=== PATIENT | female | born 1965 | race Caucasian/White ===

== ENCOUNTER 2019-08-21 20:10 | Inpatient (IN) | payer OTHER ==
[~2019-08-21] VITALS: Ht 172.7 cm; Wt 59.5 kg
[2019-08-21 21:00] LABS: BASOPHILS # (AUTO) 0.01 x10^3/uL (0-0.1); BASOPHILS % (AUTO) 0 % (0-1); EOSINOPHILS % (AUTO) 0 % (1-7); LYMPHOCYTES # (AUTO) 1.13 x10^3/uL (1-3.4); LYMPHOCYTES % (AUTO) 8 % (22-44); MD NO; MEAN CORPUSCULAR HGB CONC 33.7 g/dL (32.4-35.8); MEAN CORPUSCULAR VOLUME 97.7 fL (80-100); MONOCYTES # (AUTO) 0.45 x10^3/uL (0.2-0.8); MONOCYTES % (AUTO) 3 % (2-9); NEUTROPHILS % (AUTO) 89 % (42-75); PLATELET COUNT 202 x10^3/uL (130-400); RED BLOOD COUNT 4.83 x10^6/uL (3.82-5.3); RED CELL DISTRIBUTION WIDTH 13.8 % (9.6-15.2)
--- NOTE | 2019-08-21 21:01 | NUR ---
BIB [place], PER EMS, PT WAS WANDERING AROUND THE STREETS ATTEMPTING TO ACCESS RANDOM HOUSES. PT CONFUSED. PT ANSWERS "YES" TO MOST QUESTIONS. PT A+OX2 (PERSON AND PLACE) NO ACUTE DISTRESS. NO MEDICAL COMPLAINTS
--- NOTE | 2019-08-21 21:01 | NUR ---
PT RETURNED FROM CT AT THIS TIME
[2019-08-21 21:11] LABS: ALANINE AMINOTRANSFERASE 36 U/L (12-78); ALBUMIN 3.8 g/dL (3.4-5.0); ANION GAP 16 mmol/L (5-15); CALCIUM 8.1 mg/dL (8.5-10.1); CHLORIDE 105 mmol/L (98-107); CREATININE 0.82 mg/dL (0.55-1.02)
--- NOTE | 2019-08-21 21:12 | NUR ---
PT AMBULATORY TO BEDSIDE CAMMODE FOR URINE SAMPLE WITH STEADY GAIT
[2019-08-21 21:15] LABS: ALKALINE PHOSPHATASE 90 U/L (45-117); BILIRUBIN,TOTAL 0.4 mg/dL (0.2-1.0); TOTAL PROTEIN 7.2 g/dL (6.4-8.2)
[2019-08-21 21:36] LABS: AMPHETAMINE SCREEN, URINE Negative (Negative); BARBITURATE SCREEN, URINE Negative (Negative); BENZODIAZEPINE SCREEN, URINE Negative (Negative); CANNABINOID SCREEN, URINE Negative (Negative); COCAINE SCREEN, URINE Negative (Negative); METHADONE SCREEN, URINE Negative (Negative); OPIATE SCREEN, URINE Negative (Negative)
[2019-08-21 21:41] LABS: MICROSCOPIC INDICATED
[2019-08-21 22:10] LABS: CULTURE INDICATED? YES
[2019-08-21] MEDS ORDERED: LORazepam 1MG TABLET ONE (22:48)
[2019-08-21] MEDS ORDERED: LORazepam 2 MG/ML, 1ML ONE (22:49)
[2019-08-21] MEDS ORDERED: LORazepam 1MG TABLET PO ONE (23:00)
[2019-08-21] MEDS ORDERED: MAGNESIUM SULFATE 1 GM, THIAMINE 100 MG, FOLIC ACID 1 MG, MVI ADULT 10 ML in SODIUM CHL... IV ONE (23:00)
[2019-08-21] MEDS ORDERED: CEFTRIAXONE PMX 1GM/50ML 50 ML IV ONE (23:00)
[2019-08-21] MEDS ORDERED: LORazepam 2 MG/ML, 1ML IVPush PRN (23:00)
[2019-08-21] MEDS ORDERED: SODIUM CHLORIDE FLUSH 10ML SYR IVF ONE (23:00)
[2019-08-21] MEDS ORDERED: SODIUM CHLORIDE 0.9% 1,000ML IVBOLUS ONE (23:00)
[2019-08-21] MEDS ORDERED: SODIUM CHLORIDE 0.9% 1,000 ML IV SCH (23:22)
[2019-08-21] MEDS ORDERED: BISACODYL 10 MG SUPP PR PRN (23:30)
[2019-08-21] MEDS ORDERED: POLYETHYLENE GLYCOL 17 GM PACKET PO PRN (23:30)
[2019-08-21] MEDS ORDERED: ONDANSETRON ODT 4 MG PO PRN (23:30)
--- NOTE | 2019-08-21 23:31 | NUR ---
PER YESICA IN PHARMACY BANANA BAG AND JASMYN COMPATIBLE IN IV
--- NOTE | 2019-08-21 23:32 | NUR ---
PER EMILIO ANGEL HANY, NO BLOOD CULTURES BEFORE ABX
[2019-08-21] MEDS ORDERED: CEFTRIAXONE PMX 1GM/50ML 50 ML ONE (23:33)
--- NOTE | 2019-08-21 23:45 | NUR ---
REPORT GIVEN TO REINALDO RYDER
[2019-08-22 00:07] VITALS: BP 125/90
[2019-08-22 00:22] VITALS: BP 142/91
[2019-08-22] MEDS ORDERED: HYDR1TAB13 PO (01:20)
[2019-08-22] MEDS ORDERED: CITA40TA12 PO (01:20)
[2019-08-22] MEDS ORDERED: TRAZ50TA66 PO (01:20)
[2019-08-22] MEDS ORDERED: Antibiotic (01:20)
[2019-08-22] MEDS: THIAMINE 100MG TABLET PO SCH ×3 (02:01→20:31)
[2019-08-22 03:16] LABS: BASOPHILS # (AUTO) 0.07 x10^3/uL (0-0.1); BASOPHILS % (AUTO) 1 % (0-1); EOSINOPHILS % (AUTO) 0 % (1-7); LYMPHOCYTES # (AUTO) 2.86 x10^3/uL (1-3.4); LYMPHOCYTES % (AUTO) 25 % (22-44); MD NO; MEAN CORPUSCULAR VOLUME 99.7 fL (80-100); MEAN PLATELET VOLUME 8.2 fL (7.4-10.4); MONOCYTES # (AUTO) 0.88 x10^3/uL (0.2-0.8); MONOCYTES % (AUTO) 8 % (2-9); NEUTROPHILS # (AUTO) 7.44 x10^3/uL (1.8-6.8); NEUTROPHILS % (AUTO) 66 % (42-75); PLATELET COUNT 199 x10^3/uL (130-400); RED CELL DISTRIBUTION WIDTH 13.9 % (9.6-15.2)
[2019-08-22 03:28] LABS: ALBUMIN 3.5 g/dL (3.4-5.0); ANION GAP 10 mmol/L (5-15); CALCIUM 7.5 mg/dL (8.5-10.1); CHLORIDE 107 mmol/L (98-107)
[2019-08-22 03:31] LABS: ALANINE AMINOTRANSFERASE 35 U/L (12-78); ALKALINE PHOSPHATASE 78 U/L (45-117); BILIRUBIN,TOTAL 0.4 mg/dL (0.2-1.0); CREATININE 0.58 mg/dL (0.55-1.02); TOTAL PROTEIN 6.3 g/dL (6.4-8.2)
[2019-08-22 06:27] VITALS: BP 139/93
[2019-08-22] MEDS: LORazepam 2 MG/ML, 1ML IVPush PRN ×3 (06:30→20:31)
[2019-08-22 07:17] VITALS: BP 124/84
[2019-08-22] MEDS: SENNA/DOCUSATE TABLET PO SCH (09:00)
[2019-08-22] MEDS ORDERED: ACETAMINOPHEN 325 MG TABLET PO PRN (09:00)
[2019-08-22] MEDS: NICOTINE 21 MG/24 HR PATCH.TD24 TD SCH (09:00)
[2019-08-22] MEDS: FOLIC ACID 1 MG TABLET PO SCH (09:00)
[2019-08-22] MEDS: MULTIVITAMINS/MINERALS TABLET PO SCH (09:00)
[2019-08-22] MEDS: ENOXAPARIN 40 MG/0.4 ML SQ SCH (09:00)
[2019-08-22] MEDS: SODIUM CHLORIDE 0.9% 1,000 ML IV SCH ×2 (09:05→23:40)
[2019-08-22] MEDS: CHLORDIAZEPOXIDE 25 MG CAPSULE PO PRN ×2 (09:17→15:10)
[2019-08-22 12:37] VITALS: BP 146/95
[2019-08-22 19:46] VITALS: BP 150/90
[2019-08-22] MEDS ORDERED: CEFTRIAXONE PMX 1GM/50ML 50 ML IV SCH (23:00)
[2019-08-23 00:53] VITALS: BP 140/90
[2019-08-23 06:46] LABS: BASOPHILS # (AUTO) 0.06 x10^3/uL (0-0.1); BASOPHILS % (AUTO) 1 % (0-1); EOSINOPHILS # (AUTO) 0.11 x10^3/uL (0-0.4); EOSINOPHILS % (AUTO) 2 % (1-7); LYMPHOCYTES # (AUTO) 1.42 x10^3/uL (1-3.4); LYMPHOCYTES % (AUTO) 24 % (22-44); MD NO; MEAN CORPUSCULAR HEMOGLOBIN 33.9 pg (27.0-34.8); MEAN CORPUSCULAR VOLUME 99.6 fL (80-100); MEAN PLATELET VOLUME 8.3 fL (7.4-10.4); MONOCYTES # (AUTO) 0.47 x10^3/uL (0.2-0.8); MONOCYTES % (AUTO) 8 % (2-9); NEUTROPHILS # (AUTO) 3.98 x10^3/uL (1.8-6.8); NEUTROPHILS % (AUTO) 66 % (42-75); PLATELET COUNT 151 x10^3/uL (130-400); RED BLOOD COUNT 3.88 x10^6/uL (3.82-5.3); RED CELL DISTRIBUTION WIDTH 13.4 % (9.6-15.2)
[2019-08-23 06:59] VITALS: BP 138/91
[2019-08-23] MEDS: NICOTINE 21 MG/24 HR PATCH.TD24 TD SCH (08:27)
[2019-08-23] MEDS: SENNA/DOCUSATE TABLET PO SCH (08:28)
[2019-08-23] MEDS: MULTIVITAMINS/MINERALS TABLET PO SCH (08:28)
[2019-08-23] MEDS: FOLIC ACID 1 MG TABLET PO SCH (08:28)
[2019-08-23] MEDS: ENOXAPARIN 40 MG/0.4 ML SQ SCH (08:28)
[2019-08-23] MEDS: THIAMINE 100MG TABLET PO SCH (08:28)
[2019-08-23] MEDS ORDERED: SODIUM CHLORIDE 0.9% 1,000 ML IV SCH (09:00)
[2019-08-23] MEDS ORDERED: THIA100T67 PO (10:03)
[2019-08-23] MEDS ORDERED: NICO-487 TD (10:03)
== END 2019-08-23 12:05 | disposition home or self-care (01) | DRG 871 ==
LOC: ED 23:02 → EDIP 23:34 → 4WST 08-22 → DCLOUNGE 08-23 11:55
PROVIDERS: ADMIT Internal Medicine; ATTEND Internal Medicine
DX: A41.9 Sepsis, unspecified organism (principal); G92 Toxic encephalopathy; E87.2 Acidosis; F10.239 Alcohol dependence with withdrawal, unspecified; F10.220 Alcohol dependence with intoxication, uncomplicated; E86.0 Dehydration; F17.210 Nicotine dependence, cigarettes, uncomplicated; G31.2 Degeneration of nervous system due to alcohol; G47.00 Insomnia, unspecified; N30.91 Cystitis, unspecified with hematuria; Y90.8 Blood alcohol level of 240 mg/100 ml or more
CPT/HCPCS: 36415; 70450; 71045; 80053; 80307; 81001; 82140; 83605; 85025; 87040; 87086; 93005; 96365; 96375; G0378; J0696; J1650; J3411; J3475; J2060; J7030